=== PATIENT | female | born 1955 | race Caucasian/White ===

== ENCOUNTER 2016-10-01 12:25 | Emergency (ER) | payer BC ==
[~2016-10-01] VITALS: Ht 172.7 cm; Wt 90.7 kg
[~2016-10-01 12:25] MED LIST: FLUT16SP2 NS; allergy pill
[2016-10-01 12:41] VITALS: BP 131/83
[2016-10-01] MEDS ORDERED: ONDANSETRON ODT 4 MG TAB.RAPDIS. PO ONE (12:45)
[2016-10-01] MEDS ORDERED: ACETAMINOPHEN 500 MG TABLET PO ONE (12:45)
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
== END 2016-10-01 13:42 | disposition home or self-care (01) ==
LOC: ER 12:25
DX: S00.03XA Contusion of scalp, initial encounter (principal); Z88.2 Allergy status to sulfonamides; V49.59XA Passenger injured in collision with other motor vehicles in traffic accident, initial encounter; Y93.89 Activity, other specified; Y99.8 Other external cause status; Y92.488 Other paved roadways as the place of occurrence of the external cause
CPT/HCPCS: 70450; 99284; Q0162

== ENCOUNTER → 2017-04-17 | Outpatient (CLI) | payer OTHER, BC | END | disposition home or self-care (01) | LOC: PNCL 07:35 | DX: M47.812 Spondylosis without myelopathy or radiculopathy, cervical region (principal); M48.02 Spinal stenosis, cervical region; M50.20 Other cervical disc displacement, unspecified cervical region; Z87.891 Personal history of nicotine dependence; V29.9XXA Motorcycle rider (driver) (passenger) injured in unspecified traffic accident, initial encounter | CPT/HCPCS: 99214 ==

== ENCOUNTER → 2017-12-06 | Outpatient (CLI) | payer BC, OTHER ==
[~2017-12-06] MED LIST changes: +HYDR-2758 PO; +ONDA4TAB7 PO; +muscle relaxer
[2017-12-06 13:14] LABS: CALCIUM 9.1 mg/dL (8.5-10.1); GFR 55.8; POTASSIUM 4.1 mmol/L (3.5-5.1)
--- NOTE | 2017-12-06 13:28 | EKG ---
[facility] [address] [place] [address] Test Date: 2017-12-06 Test Time: 13:22:09 Pat Name: ABHIJIT WALLS Department: Room: Gender: F [employer]: AT : 1955 Requested By: MIGUEL ÁNGEL PEREZ Order Number: [id number] Reading MD: Measurements Intervals [place] Rate: 64 P: 50 PA: 178 QRS: -24 QRSD: 88 T: 31 QT: 396 QTc: 408 Interpretive Statements SINUS RHYTHM LEFT ATRIAL ABNORMALITY LEFTWARD AXIS QRS(T) CONTOUR ABNORMALITY CONSIDER ANTEROSEPTAL MYOCARDIAL DAMAGE ABNORMAL ECG RI6.01 No previous ECG available for comparison
== END | disposition home or self-care (01) ==
LOC: LAB 12:30
DX: Z01.810 Encounter for preprocedural cardiovascular examination (principal); M67.441 Ganglion, right hand; Z87.891 Personal history of nicotine dependence; Z90.710 Acquired absence of both cervix and uterus; Z88.2 Allergy status to sulfonamides
CPT/HCPCS: 36415; 80048; 93005